=== PATIENT | female | born 1985 | race Caucasian/White ===

== ENCOUNTER 2020-11-08 12:25 | Emergency (ER) | payer OTHER, SELFPAY ==
--- NOTE | ~2020-11-08 | CT_ITS ---
EXAMINATION: CT ABDOMEN AND PELVIS WITHOUT CONTRAST CLINICAL INFORMATION: Left-sided abdominal pain COMPARISON: None TECHNIQUE: Multidetector volumetric imaging was performed from the superior aspect of the liver through the pubic symphysis. Sagittal and coronal reformatted images were obtained on the technologist's workstation. This CT examination was performed using dose optimization techniques as appropriate, variously including the following: *Automated exposure control *Adjustment of mA and/or kV according to patient size (this includes techniques or standardized protocols for targeted exams where dose is matched to indication/reason for exam; i.e. extremities or head) *Use of iterative reconstruction technique DLP: 716 mGy-cm FINDINGS: LUNG BASES: The lung bases are clear. The heart size is normal. LIVER, GALLBLADDER, AND BILIARY TREE: The liver is normal in size, shape, and diffusely attenuated. No focal hepatic lesion or biliary ductal dilatation is present. The gallbladder is unremarkable with no evidence of radiopaque gallstones, gallbladder wall thickening, or obvious pericholecystic inflammatory changes. PANCREAS: Unremarkable. SPLEEN: Unremarkable. ADRENAL GLANDS: Unremarkable. KIDNEYS AND URETERS: The kidneys are normal in size, shape, and attenuation. No hydronephrosis, hydroureter, or calculi seen. No perinephric stranding. BLADDER: Unremarkable. GASTROINTESTINAL TRACT: There is scattered stool and gas seen throughout the colon without significant distention. The small bowel loops are normal caliber. The stomach is nondistended. Appendix is normal caliber. ABDOMINAL WALL: No significant hernia is appreciated. LYMPH NODES: Normal. VASCULAR: Unremarkable. PELVIC VISCERA: The uterus is anteverted and appears unremarkable. OSSEOUS STRUCTURES: No lytic or sclerotic process seen CT/CT abdomen pelvis wo con IMPRESSION: No acute intra-abdominal process seen. Diffuse hepatic steatosis
[2020-11-08 13:34] VITALS: BP 115/73; PULSE 94; RESP 16; TEMP 37; O2SAT 99; BMI 28.8
[2020-11-08 16:57] LABS: MANUAL DIFF FLAG NO
[2020-11-08 17:00] LABS: Basophils Percent Auto 0.5 % (0-2); Eosinophils Absolute Auto 0.2 X10*3/uL (0.0-0.4); Eosinophils Percent Auto 2.9 % (0-4); Hematocrit 43.8 % (37-47); Hemoglobin 14.1 g/dl (12.0-16.0); Imm Gran Abs Auto 0.02 X10*3/uL (0.00-0.03); Imm Gran Pct Auto 0.3 % (0.0-0.4); Lymphocytes Absolute Auto 1.9 X10*3/uL (1.2-4.9); Lymphocytes Percent Auto 29.5 % (20-40); Mean Corpuscular HGB Conc 32.2 g/dl (31.0-35.0); Mean Corpuscular Volume 87.1 fL (80-98); Mean Platelet Volume 10.6 fL (9.4-12.3); Monocytes Absolute Auto 0.6 X10*3/uL (0.1-1.2); Neutrophils Absolute Auto 3.7 X10*3/uL (2.0-8.3); Neutrophils Percent Auto 57.8 % (45-73); Platelet Count 358 X10*3/uL (160-400); Red Blood Count 5.03 X10*6/uL (4.20-5.50); Red Cell Distribution Width 13.4 % (11.0-16.0); White Blood Count 6.5 X10*3/uL (4.8-10.8)
[2020-11-08 17:03] VITALS: BP 108/72; PULSE 99; RESP 18; TEMP 37.6; O2SAT 99
--- NOTE | 2020-11-08 17:08 | ED_ITS ---
HPI - Abdominal Pain General Chief Complaint: Abdominal Pain Stated Complaint: MULT COMPLAINTS Time Seen by Provider: 11/08/20 17:04 History of Present Illness HPI narrative: Patient is a 35-year-old female presents today with having abdominal pain over the last 3 days over the left upper quadrant. It is worse with sitting up. The pain is dull in nature. Can not goes to the back. Denies any history kidney stone. No coughing or congestion or upper respiratory symptoms. Patient did complain of having some nausea vomiting and diarrhea in the last 24 hours. Diarrhea is mostly brown in color. Vomiting mostly water. Patient from home. No travel. No sick contact. No history of abdominal surgery in the past. Related Data Home Medications Medication Instructions Recorded Confirmed albuterol sulfate 90 mcg/actuation 2 puff PO Q6H PRN 11/08/20 aerosol inhaler dextroamphetamine-amphetamine ER 1 cap PO BID 11/08/20 10 mg 24hr capsule,extend release Previous Rx's Medication Instructions Recorded omeprazole magnesium [Prilosec OTC] 20 mg PO DAILY #30 tab 11/08/20 Allergies Allergy/AdvReac Type Severity Reaction Status Date / Time latex [LATEX] Allergy Intermediate RASH Unverified 11/08/20 08:45 Flexeril Allergy Unknown Unknown Uncoded 11/08/20 08:45 Review of Systems Review of Systems Constitutional: No Weight loss, No Fever, No Chills, No Night Sweats, No Fatigue, No Malaise ENT/Mouth: No Hearing loss, No Ear Pain, No Nasal Congestion, No Sinus Pain, No Hoarseness, No sore throat, No Rhinorrhea, No Swallowing Difficulty Eyes: No Eye Pain, No Swelling, No Redness, No Foreign Body, No Discharge, No Vision Changes Cardiovascular: No Chest Pain, No SOB, No Dyspnea on Exertion, No Orthopnea, No Edema, No Palpitations Respiratory: No Cough, No Sputum, No Wheezing, No Smoke Exposure, No Dyspnea Gastrointestinal: No Nausea, No Vomiting, No Diarrhea, No Constipation, positive abdominal Pain, No Hematochezia, No Melena Genitourinary: no irregular bleeding, No Dysuria, No Urinary Frequency, No Hematuria, No Urinary Incontinence, No Urgency, No Flank Pain, No Urinary Flow Changes, No Hesitancy Musculoskeletal: No joint pain, No Myalgias, No Joint Swelling Skin: No Skin Lesions, No rash Neuro: No Weakness, No Numbness, No Paresthesias, No Loss of Consciousness, No Dizziness, No Headache Psych: No Anxiety/Panic, No Depression, No SI/HI/AH/VH, No Social Issues, Heme/Lymph: No Bruising, No Bleeding,No Lymphadenopathy Endocrine: No Polyuria, No Polydipsia, No Temperature Intolerance Physical Exam Vital Signs: Vital Signs: Last Vital Signs Temp 99.7 F 11/08/20 17:03 Pulse 99 11/08/20 17:03 Resp 18 11/08/20 17:03 BP 108/72 11/08/20 17:03 Pulse Ox 99 11/08/20 17:03 Body Mass Index 28.8 Appearance: Alert. Oriented X3. No acute distress. Eyes: Pupils equal, round and reactive to light. ENT: Pharynx normal. Neck: Normal inspection. Neck supple. No lymph nodes noted. No crepitus CVS: Normal heart rate and rhythm. Pulses normal. Normal S1 and S2 Respiratory: No respiratory distress. Breath sounds normal. No Wheezing. No rales Abdomen: Soft and nontender. No rigidity. No distention. good BS x4 Skin: Skin warm and dry. Normal skin color. Normal skin turgor. Extremities: No lower extremity edema. Neurovascular intact to all extremities. No Lacerations. No Rash Neuro: Oriented X 3. No motor deficit. No sensory deficit. Moving all extermities. No slurred speech MDM - Abdominal Pain MDM Narrative Medical decision making narrative: Patient's CT scan of the abdomen negative for any acute evidence of stone. Urine negative for infection. White count is normal. Electrolyte is normal. LFTs are normal. Question secondary to reflux will go ahead start PPI. Will discharge patient home close follow-up on an outpatient basis. Differential Diagnosis Differential diagnosis: Likely abdominal pain, aortic dissection, acute appendicitis, bowel perforation, calculus of kidney, constipation, diverticulitis, endometriosis, gastroenteritis, gastritis, mesenteric ischemia, ovarian cyst, pancreatitis, peptic ulcer disease, renal colic and small bowel obstruction Lab Data Result diagrams: 11/08/20 16:40 11/08/20 16:40 Labs: Lab Results 11/08/20 11/08/20 11/08/20 Range/Units 16:40 16:40 16:40 WBC 6.5 (4.8-10.8) X10*3/uL RBC 5.03 (4.20-5.50) X10*6/uL Hgb 14.1 (12.0-16.0) g/dl Hct 43.8 (37-47) % MCV 87.1 (80-98) fL MCH 28.0 (27.0-33.0) pg MCHC 32.2 (31.0-35.0) g/dl RDW 13.4 (11.0-16.0) % Plt Count 358 (160-400) X10*3/uL MPV 10.6 (9.4-12.3) fL Immature Gran % (Auto) 0.3 (0.0-0.4) % Neut % (Auto) 57.8 (45-73) % Lymph % (Auto) 29.5 (20-40) % Nuckolls % (Auto) 9.0 (2-11) % Eos % (Auto) 2.9 (0-4) % Baso % (Auto) 0.5 (0-2) % Lymph # (Auto) 1.9 (1.2-4.9) X10*3/uL Nuckolls # (Auto) 0.6 (0.1-1.2) X10*3/uL Eos # (Auto) 0.2 (0.0-0.4) X10*3/uL Baso # (Auto) 0.0 (0.0-0.2) X10*3/uL Abs Immat Gran (auto) 0.02 (0.00-0.03) X10*3/uL Absolute Neuts (auto) 3.7 (2.0-8.3) X10*3/uL Absolute Nucleated RBC 0.000 (0.0-0.012) X10*3/uL Nucleated RBC % (auto) 0.0 (0.0-0.2) /100WBC Hold Blue Top SEE NOTE Sodium 138 (135-145) mmol/L Potassium 4.0 (3.3-5.1) mmol/L Chloride 102 (96-108) mmol/L Carbon Dioxide 24 (22-29) mmol/L Anion Gap 16 (12-20) BUN 7 L (9-16) mg/dL Creatinine 0.70 (0.5-1.4) mg/dL Estim Creat Clear Calc 128.9 Estimated GFR > 60 Random Glucose 112 (60-115) mg/dL Calcium 9.0 (8.4-10.2) mg/dL Total Bilirubin 0.3 (0.0-1.0) mg/dL AST 24 (5-31) U/L ALT 40 H (0-31) U/L Alkaline Phosphatase 74 (39-117) U/L Total Protein 8.1 H (6.5-8.0) g/dL Albumin 4.4 (3.5-5.0) g/dL Lipase 18 (8-78) U/L Urine Color Urine Appearance Urine pH (5.0-8.0) Ur Specific [place] (1.005-1.025) Urine Protein (NEG-TRACE) MG/DL Urine Glucose (UA) (NEG) MG/DL Urine Ketones (NEG) MG/DL Urine Blood (NEG) Urine Nitrite (NEG) Ur Leukocyte Esterase (NEG) Urine RBC (0) /HPF Urine WBC (0-4) /HPF Ur Squamous Epith Cells /LPF Urine Bacteria /LPF Urine Test (NEGATIVE) 11/08/20 11/08/20 Range/Units 17:54 17:54 WBC (4.8-10.8) X10*3/uL RBC (4.20-5.50) X10*6/uL Hgb (12.0-16.0) g/dl Hct (37-47) % MCV (80-98) fL MCH (27.0-33.0) pg MCHC (31.0-35.0) g/dl RDW (11.0-16.0) % Plt Count (160-400) X10*3/uL MPV (9.4-12.3) fL Immature Gran % (Auto) (0.0-0.4) % Neut % (Auto) (45-73) % Lymph % (Auto) (20-40) % Nuckolls % (Auto) (2-11) % Eos % (Auto) (0-4) % Baso % (Auto) (0-2) % Lymph # (Auto) (1.2-4.9) X10*3/uL [place]olls # (Auto) (0.1-1.2) X10*3/uL Eos # (Auto) (0.0-0.4) X10*3/uL Baso # (Auto) (0.0-0.2) X10*3/uL Abs Immat Gran (auto) (0.00-0.03) X10*3/uL Absolute Neuts (auto) (2.0-8.3) X10*3/uL Absolute Nucleated RBC (0.0-0.012) X10*3/uL Nucleated RBC % (auto) (0.0-0.2) /100WBC Hold Blue Top Sodium (135-145) mmol/L Potassium (3.3-5.1) mmol/L Chloride (96-108) mmol/L Carbon Dioxide (22-29) mmol/L Anion Gap (12-20) BUN (9-16) mg/dL Creatinine (0.5-1.4) mg/dL Estim Creat Clear Calc Estimated GFR Random Glucose (60-115) mg/dL Calcium (8.4-10.2) mg/dL Total Bilirubin (0.0-1.0) mg/dL AST (5-31) U/L ALT (0-31) U/L Alkaline Phosphatase (39-117) U/L Total Protein (6.5-8.0) g/dL Albumin (3.5-5.0) g/dL Lipase (8-78) U/L Urine Color YELLOW Urine Appearance CLEAR Urine pH 6.0 (5.0-8.0) Ur Specific [place] 1.020 (1.005-1.025) Urine Protein NEG (NEG-TRACE) MG/DL Urine Glucose (UA) NEG (NEG) MG/DL Urine Ketones NEG (NEG) MG/DL Urine Blood 2+ H (NEG) Urine Nitrite NEG (NEG) Ur Leukocyte Esterase NEG (NEG) Urine RBC 10-14 H (0) /HPF Urine WBC 0-2 (0-4) /HPF Ur Squamous Epith Cells 3+ /LPF Urine Bacteria TRACE /LPF Urine Test NEGATIVE (NEGATIVE) Discharge Plan Discharge Clinical Impression: Abdominal pain, Gastritis Patient Disposition: Home, Self-Care Instructions: Gastritis (ED), Abdominal Pain (ED) Prescriptions: New omeprazole magnesium [Prilosec OTC] 20 mg tablet,delayed release (DR/EC) 20 mg PO DAILY Qty: 30 RF: 0 No Action dextroamphetamine-amphetamine 10 mg capsule,extended release 24hr 1 cap PO BID RF: 0 albuterol sulfate 90 mcg/actuation HFA aerosol inhaler 2 puff PO Q6H PRNRF: 0 Referrals: Priscilla Llanos MD [Primary Care Provider] - 2 days PMF Past Medical History Attestation statement: The following information was validated with the patient. Medical History No known health problems Social History Social History Advance Directives: No Advance Directives Information Provided: No
[2020-11-08 17:35] LABS: Alanine Aminotransferase 40 U/L (0-31); Albumin Level 4.4 g/dL (3.5-5.0); Alkaline Phosphatase 74 U/L (39-117); Anion Gap 16 (12-20); Aspartate Amino Transferase 24 U/L (5-31); Bilirubin Total 0.3 mg/dL (0.0-1.0); Blood Urea Nitrogen 7 mg/dL (9-16); Carbon Dioxide 24 mmol/L (22-29); Chloride 102 mmol/L (96-108); Creatinine Clr Calc Pharmacy 128.9; Estimated Glomerular Filt Rate > 60; Glucose Random 112 mg/dL (60-115); Lipase 18 U/L (8-78); Sodium 138 mmol/L (135-145); Total Protein 8.1 g/dL (6.5-8.0)
[2020-11-08 18:10] LABS: Glucose Urine UA NEG (NEG); Leukocyte Esterase Urine NEG (NEG); Nitrite Urine NEG (NEG); Urine Blood 2+ (NEG); Urine Ketones NEG (NEG); Urine Protein NEG (NEG-TRACE)
[2020-11-08 18:12] LABS: Appearance Urine CLEAR; Color Urine YELLOW
[2020-11-08 18:15] LABS: UPreg QC Valid YES; Urine Pregnancy NEGATIVE (NEGATIVE)
[2020-11-08 18:23] LABS: Bacteria Urine TRACE /LPF; Squamous Epithelial Cell Urine 3+ /LPF; WBC Urine 0-2 /HPF (0-4)
[2020-11-08 19:54] VITALS: BP 120/75; PULSE 98; RESP 16
== END 2020-11-08 19:56 | disposition home or self-care (01) ==
PROVIDERS: Emergency Medicine; Emergency Provider Emergency Medicine Emergency Medical Services; PCP Internal Medicine
DX: K29.70 Gastritis, unspecified, without bleeding (principal); R10.12 Left upper quadrant pain; Z79.899 Other long term (current) drug therapy
CPT/HCPCS: 36415; 74176; 80053; 81001; 81025; 83690; 85025; 96372; 99284

== ENCOUNTER 2021-06-19 14:17 | Outpatient (REF) | payer OTHER, SELFPAY ==
[2021-06-19 15:27] LABS: Influenza A PCR NEGATIVE (Negative); Influenza B PCR NEGATIVE (Negative); Resp Syncy Virus RNA Qual PCR NEGATIVE (Negative); SARS COV2 PCR INHOUSE POSITIVE (Negative)
== END 2021-06-19 14:18 | disposition home or self-care (01) ==
LOC: HO.LNP 14:17
PROVIDERS: Visit Provider Internal Medicine
DX: R43.9 Unspecified disturbances of smell and taste (principal); Z20.822 Contact with and (suspected) exposure to COVID-19
CPT/HCPCS: 0241U

== ENCOUNTER 2021-10-31 15:05 | Outpatient (REF) | payer OTHER, SELFPAY ==
[2021-10-31 15:36] LABS: Binax Internal Control QC Valid; Binax Now Covid-19 Ag Negative (Negative)
== END 2021-10-31 15:06 | disposition home or self-care (01) ==
LOC: HO.HMGCLDS 15:05
PROVIDERS: Visit Provider Physician Assistant
DX: Z13.89 Encounter for screening for other disorder (principal)